=== PATIENT | male | born 1965 | race Two or more races ===

== ENCOUNTER 2025-07-03 14:57 | Emergency (ER) | payer OTHER ==
[2025-07-03 16:01] VITALS: BP 150/93; PULSE 93; RESP 18; TEMP 98.3; BMI 23.3
== END 2025-07-03 16:55 | disposition home or self-care (01) ==
LOC: JERFT 14:57
PROC: 0HQFXZZ Repair Right Hand Skin, External Approach (ICD-10-PCS; principal; 2025-07-03)
DX: S61.210A Laceration without foreign body of right index finger without damage to nail, initial encounter (principal); W26.8XXA Contact with other sharp object(s), not elsewhere classified, initial encounter; Y99.0 Civilian activity done for income or pay
CPT/HCPCS: 12002-25; 73130-TC-RT-FY; 99283-25